=== PATIENT | female | born 1985 | race Caucasian/White ===

== ENCOUNTER 2017-09-11 16:35 | Inpatient (IN) ==
[2017-09-11 17:45] LABS: Basophils # 0.1 K/mcL (0.0-0.2); Basophils % 0.7 %; Eosinophils # 0.1 K/mcL (0.0-0.6); Eosinophils % 0.8 %; Hematocrit 38.6 % (35.3-44.9); Hemoglobin 13.2 g/dL (11.5-15.4); Immature Granulocytes % 0.2 % (0-4); Lymphocytes # 2.2 K/mcL (0.6-4.6); Lymphocytes % 24.7 %; Mean Corpuscular HGB Conc 34.2 g/dL (31.6-35.5); Mean Corpuscular Hemoglobin 29.6 pg (28.0-33.3); Mean Corpuscular Volume 86.5 fL (83.0-100.0); Mean Platelet Volume 9.5 fL (9.4-12.4); Monocytes # 0.6 K/mcL (0.0-1.3); Monocytes % 6.8 %; Platelet Count 262 K/mcL (140-400); Red Blood Count 4.46 M/mcL (3.82-4.97); Red Cell Distribution Width 13.6 % (11.5-14.5); Segmented Neutrophils % 66.8 %
[2017-09-11 17:58] LABS: BUN/Creatinine Ratio 23 (6-26); Blood Urea Nitrogen 14 mg/dL (6-20); C-Reactive Protein 16 mg/L (Less than 10); Calcium 9.5 mg/dL (8.6-10.3); Carbon Dioxide 23 mEq/L (23-29); Chloride 105 mEq/L (98-107); Glucose 105 mg/dL (70-105); Osmolality,Calculated 281 (280-300); Potassium 3.8 mEq/L (3.5-5.1); Sodium 135 mEq/L (136-145); eGFR For Non-African Americans > 60 (> 60)
[2017-09-11] MEDS ORDERED: Piperacillin/Tazobactam 3.375 GM in 0.9 % Sodium Chloride Mini Bag 100 ML IVPB ONE (18:16)
[2017-09-11] MEDS ORDERED: Tdap (Boostrix) Vaccine 0.5 ML SYRINGE IM ONE (18:16)
--- NOTE | 2017-09-11 18:44 | Emergency Department Note ---
Disposition Clinical Impression: Flexor tenosynovitis of finger Disposition: Admitted As Inpatient Condition: Good Referrals: NONE,PCP [Primary Care Provider] - General Adult HPI - General Chief complaint: ED Wound/Laceration Stated complaint: "R hand pain possibly infected" Time Seen by Provider: 09/11/17 17:10 Source: patient Limitations: no limitations Nursing Notes Reviewed: Yes Vital Signs Reviewed: Yes - History of Present Illness HPI Narrative: Patient with a history of hepatitis as well as MRSA. Previous IV drug use with last use approximately 2 weeks ago. Patient presents for swelling, redness, tenderness of the right index finger. Patient noticed that she has got a healing wound to the medial side of the fingers proximal 1 cm in nature. Appears to be several days old as it is healing. Patient's finger is mildly red. Swollen. Symmetric swelling with tenderness along the flexor sheath pain with passive range of motion. Finger held in flexion. Concern for flexor tenosynovitis. A call will be placed to ortho. Blood work and antibiotics will be started. Pain Scale: 8 - Related Data Home Medications Medication Instructions Recorded Confirmed Acetaminophen [Tylenol] 325 - 650 mg PO Q6HR PRN 12/03/16 12/03/16 Previous Rx's Medication Instructions Recorded Bacitracin OINT [Ak-Tracin] 1 appl TP BID PRN #1 tube 12/06/16 Meloxicam [Mobic] 7.5 mg PO DAILY PRN #14 tablet 12/06/16 Ondansetron ODT [Zofran ODT] 4 mg SL Q8HR PRN #12 tab.rapdis 12/27/16 Allergies Allergy/AdvReac Type Severity Reaction Status Date / Time ethinyl estradiol Allergy Rash Verified 09/11/17 16:41 norelgestromin Allergy Rash Verified 09/11/17 16:41 Review of Systems: As Per HPI Constitutional: Denies: fever, chills ENT ED: Denies: ear pain Cardiovascular: Denies: chest pain, palpitations Respiratory: Denies: cough, dyspnea Gastrointestinal: Denies: abdominal pain, nausea Genitourinary: Denies: urgency, dysuria Musculoskeletal: Reports: other (Right index finger pain). Denies: back pain Integumentary: Reports: other (Erythema to the right index finger as well as the dorsum of the hand extending to the distal part of the ventral forearm). Denies: rash Past Medical History - Past Medical History Medical history: Reports: hepatitis Psychiatric history: Reports: anxiety - Social History Smoking Status: Current every day smoker Smokeless Tobacco Status: No (1/2) Alcohol use: Reports: none Drug use: Reports: methamphetamine Physical Exam General appearance: NAD, conversant Eyes: anicteric sclerae, moist conjunctivae; HENT: Atraumatic; oropharynx clear with moist mucous membranes Neck: Normal appearance; Trachea midline Chest: Symmetrical chest rise; No respiratory distress Extremities: Erythema to the right index finger as well as the dorsum of the hand extending to the distal part of the ventral forearm. Distal cap refill to the right index finger is less than 3 seconds and symmetric. Mild dullness in sensation compared to the other fingers. Skin: Normal temperature, turgor and texture; no rash, ulcers or subcutaneous nodules Psych: Appropriate mood and affect Neuro: Awake and alert - General Limitations: no limitations General appearance: alert, in no apparent distress Course - Reevaluation(s) Reevaluation #1: Discussed with patient. Patient willing to stay in the hospital for further evaluation and treatment. - Consultations Consultation #1: Discussed with orthopedics, Dr. Rodriguez, pictures were sent with the patient's approval. At this time the patient can be admitted for IV antibiotics and they will consult. Consultation #2: Discussed with hospitalist. Patient accepted for admission. Vital Signs Temperature 98.1 F 09/11/17 16:38 Pulse Rate 115 09/11/17 16:38 Respiratory Rate 18 09/11/17 16:38 Blood Pressure 146/95 09/11/17 16:38 O2 Sat by Pulse Oximetry 99 09/11/17 16:38 Temperature 98.1 F 09/11/17 17:43 Pulse Rate 115 09/11/17 17:43 Respiratory Rate 18 09/11/17 17:43 Blood Pressure 146/95 09/11/17 17:43 O2 Sat by Pulse Oximetry 99 09/11/17 17:43 Oxygen Delivery Oxygen Delivery Room Air Medical Decision Making - Lab Data Result diagrams: 09/11/17 17:26 09/11/17 17:26 Lab Results 09/11/17 09/11/17 09/11/17 Range/Units 17:26 17:26 17:26 WBC 8.9 (4.3-11.1) K/mcL RBC 4.46 (3.82-4.97) M/mcL Hgb 13.2 (11.5-15.4) g/dL Hct 38.6 (35.3-44.9) % MCV 86.5 (83.0-100.0) fL MCH 29.6 (28.0-33.3) pg MCHC 34.2 (31.6-35.5) g/dL RDW 13.6 (11.5-14.5) % Plt Count 262 (140-400) K/mcL MPV 9.5 (9.4-12.4) fL Immature Gran % 0.2 (0-4) % Seg Neutrophils % 66.8 % Lymphocytes % 24.7 % Monocytes % 6.8 % Eosinophils % 0.8 % Basophils % 0.7 % Neutrophils # 6.0 (1.6-8.9) K/mcL Lymphocytes # 2.2 (0.6-4.6) K/mcL Monocytes # 0.6 (0.0-1.3) K/mcL Eosinophils # 0.1 (0.0-0.6) K/mcL Basophils # 0.1 (0.0-0.2) K/mcL ESR 16 H (0-15) mm/hr Sodium 135 L (136-145) mEq/L Potassium 3.8 (3.5-5.1) mEq/L Chloride 105 (98-107) mEq/L Carbon Dioxide 23 (23-29) mEq/L BUN 14 (6-20) mg/dL Creatinine 0.60 (0.60-1.20) mg/dL Est GFR ( Amer) > 60 (> 60) Est GFR (Non-Af Amer) > 60 (> 60) BUN/Creatinine Ratio 23 (6-26) Glucose 105 (70-105) mg/dL Calculated Osmolality 281 (280-300) Calcium 9.5 (8.6-10.3) mg/dL C-Reactive Protein 16 H (Less than 10) mg/L
[2017-09-11] MEDS ORDERED: Ondansetron ODT 4 MG TAB.RAPDIS SL PRN (21:37)
[2017-09-11] MEDS ORDERED: Naloxone 0.4 MG/ML INJ IVP PRN (21:39)
[2017-09-11] MEDS ORDERED: traMADol 50 MG TABLET PO PRN (21:39)
[2017-09-11] MEDS ORDERED: Acetaminophen 325 MG TABLET PO PRN (21:39)
[2017-09-11] MEDS: *HR* OxyCODONE Immed Rel 5 MG TABLET PO PRN (22:56)
--- NOTE | 2017-09-11 23:13 | Internal Med History&Physical ---
Date of Encounter: 09/11/17 Time of Encounter: 21:00 Internal Medicine - H&P: HPI Chief complaint: REDNESS/SWELLING AND PAIN OF R INDEX FINGER Admitted From: Home Plans for Post Hospital Care: Home History of present illness: Ms. Castellano is a 32 year old female. She has had progressing redness/swelling, as well as pain of her right index finger. It started yesterday morning. She does not recall any particular injury (scratches, bites etc.). However, I did see and linear superficial scratch located on the medial portion of the distal right index finger. The pain is moderate in intensity. She is not able to do whole range of motion in that finger. Denies fever and chills. Denies chest pain. Denies difficulty breathing, coughing and wheezing. The patient denies IV drug use with one exception. It was 2 weeks ago when she injected IV methamphetamine. She is everyday smoker. She denies alcohol use. Review of systems: All 14 organ systems were reviewed by me with the patient. Positive and pertinent negative findings are listed above. The rest of organ systems is negative. Physical Exam: Skin: There is moderate redness/swelling of her right index fingersee above. Eyes: Sclera is white. There is no discharge from eyes. ENMT: Oral/pharyngeal mucosa is normal in appearance. There is no discharge from nose or ears. Respiratory: Normal breath sounds with no crackles and wheezes bilaterally. CV: Heart is regular with no gallop or murmur. GI: Abdomen is flat and soft with no palpable mass or visceromegaly. : There is no tenderness in patient's flanks bilaterally. Neuro exam: He has good strength in upper and lower extremities. He has normal eye movements. Psychiatric: He has normal affect. His thought process is appropriate to the situation. A/P: Cellulitis of her right index finger. Likely triggered by some scratch, she does not remember. We will keep her on IV vancomycin and IV Zosyn. Orthopedic surgery was consulted. We will obtain 2 blood cultures. Hepatitis C. She was tested positive for hepatitis C antibody about 2 years ago. She did not get any particular treatments for that problem. This will be addressed in outpatient settings. IV drug user. I feel that she was using IV drugs more than once in her life. Her blood cultures are imperative. Past Med Surg Social Fam HX - Past Medical History Medical history: hepatitis Additional medical history: liver ca? Psychiatric history: anxiety - Social History Smoking Status: Current every day smoker Packs per day: 1/2 Smokeless Tobacco Status: No Alcohol use: none Drug use: methamphetamine Internal Medicine - H&P: Meds Acetaminophen [Tylenol] 325 - 650 mg PO Q6HR PRN 12/03/16 [History] Bacitracin OINT [Ak-Tracin] 1 appl TP BID PRN #1 tube 12/06/16 [Rx] Meloxicam [Mobic] 7.5 mg PO DAILY PRN #14 tablet 12/06/16 [Rx] Ondansetron ODT [Zofran ODT] 4 mg SL Q8HR PRN #12 tab.rapdis 12/27/16 [Rx] 3 Allergy/AdvReac Type Severity Reaction Status Date / Time ethinyl estradiol Allergy Rash Verified 09/11/17 16:41 norelgestromin Allergy Rash Verified 09/11/17 16:41 - Constitutional Vitals: Temp Pulse Resp BP Pulse Ox 98.3 F 105 18 112/72 96 09/11/17 20:57 09/11/17 20:57 09/11/17 20:57 09/11/17 20:57 09/11/17 20:57 General appearance: Present: A&O X 3, no acute distress, answers questions appropriately Internal Med - H&P Results - Labs CBC & Chem 7: 09/11/17 17:26 09/11/17 17:26 - Assessment and plan (1) Cellulitis of right index finger Current Visit: Yes Status: Acute (2) Hepatitis C Current Visit: Yes Status: Chronic Qualifiers: Viral hepatitis chronicity: unspecified Hepatic coma status: without hepatic coma Qualified Code(s): B19.20 - Unspecified viral hepatitis C without hepatic coma (3) IV drug user Current Visit: Yes Status: Chronic - Time Spent With Patient Total time spent is greater than 50% in coordination of care (as documented) at patient's floor/unit and/or counseling patient: Greater than 35 minutes
[2017-09-12] MEDS: *HR* OxyCODONE Immed Rel 5 MG TABLET PO PRN (06:14)
[2017-09-12 07:30] VITALS: BP 109/70
[2017-09-12] MEDS ORDERED: Piperacillin/Tazobactam 3.375 GM in 0.9 % Sodium Chloride Mini Bag 100 ML IVPB SCH ×2 (08:00)
[2017-09-12] MEDS ORDERED: Ibuprofen 600 MG TABLET PO SCH (09:00)
[2017-09-12] MEDS ORDERED: Aminoglycoside Consult 1 EACH MC ONE (09:59)
--- NOTE | 2017-09-12 12:02 | Event Note ---
Date of Encounter: 09/12/17 Time of Encounter: 12:00 Pt eloped out of hospital without notifying nursing staff or attending provider. Steff Munoz was called and we were unable to locate the patient.
== END 2017-09-12 10:00 | disposition left against medical advice (07) | DRG 603 ==
LOC: EMEROO 16:35 → 3NENU 16:35
PROVIDERS: ADMIT Internal Medicine; ATTEND Internal Medicine

== ENCOUNTER 2018-06-13 16:59 | Observation (INO) ==
[2018-06-13] MEDS ORDERED: 0.9 % Sodium Chloride 1,000 ML IVC ONE (18:04)
[2018-06-13] MEDS ORDERED: Isovue-370 500 ML BOTTLE IVP ONE (18:04)
[2018-06-13 18:35] LABS: Basophils # 0.1 K/mcL (0.0-0.2); Basophils % 0.7 %; Eosinophils # 0.1 K/mcL (0.0-0.6); Eosinophils % 0.7 %; Hematocrit 41.1 % (35.3-44.9); Hemoglobin 13.3 g/dL (11.5-15.4); Immature Granulocytes % 0.8 % (0-4); Lymphocytes # 2.3 K/mcL (0.6-4.6); Lymphocytes % 21.3 %; Mean Corpuscular HGB Conc 32.4 g/dL (31.6-35.5); Mean Corpuscular Hemoglobin 25.5 pg (28.0-33.3); Mean Corpuscular Volume 78.7 fL (83.0-100.0); Mean Platelet Volume 9.8 fL (9.4-12.4); Monocytes # 0.7 K/mcL (0.0-1.3); Monocytes % 6.3 %; Neutrophils # 7.5 K/mcL (1.6-8.9); Platelet Count 264 K/mcL (140-400); Red Blood Count 5.22 M/mcL (3.82-4.97); Red Cell Distribution Width 15.3 % (11.5-14.5); Segmented Neutrophils % 70.2 %
[2018-06-13 18:43] LABS: INR 1.2; Prothrombin Time 13.5 Seconds (9.4-12.1)
[2018-06-13 18:46] LABS: Activated Partial Thrombo Time 30.5 Seconds (26.0-36.0)
[2018-06-13 18:53] LABS: Alanine Aminotransferase 38 Units/L (7-52); Albumin 4.7 g/dL (3.5-5.7); Albumin/Globulin Ratio 1.3 (1.1-2.2); Alkaline Phosphatase 79 Units/L (34-104); Aspartate Amino Transferase 21 Units/L (13-39); BUN/Creatinine Ratio 18 (6-26); Bilirubin,Direct 0.4 mg/dL (0.0-0.2); Bilirubin,Indirect 1.5 mg/dL (0.0-1.2); Bilirubin,Total 1.9 mg/dL (0.3-1.0); Blood Urea Nitrogen 11 mg/dL (6-20); Calcium 9.5 mg/dL (8.6-10.3); Carbon Dioxide 22 mEq/L (23-29); Chloride 105 mEq/L (98-107); Globulin 3.6 g/dL (2.4-3.5); Glucose 91 mg/dL (70-105); Osmolality,Calculated 283 (280-300); Potassium 3.3 mEq/L (3.5-5.1); Sodium 137 mEq/L (136-145); Total Protein 8.3 g/dL (6.4-8.9); eGFR For Non-African Americans > 60 (> 60)
[2018-06-13 19:01] LABS: Bilirubin,Urine Negative (Negative); Blood,Urine Negative (Negative); Clarity,Urine Cloudy (Clear); Color,Urine Yellow (Yellow); Glucose,Urine (UA) Normal (Normal); Ketones,Urine Negative (Negative); Leukocyte Esterase,Urine Moderate (Negative); Nitrite,Urine Positive (Negative); PH,Urine 6.5 pH Units (5.0-8.0); Protein,Urine 30 mg/dL (Neg-Trace); Specific Gravity,Urine 1.013 (1.010-1.025)
[2018-06-13 19:02] LABS: Bacteria,Urine Many per hpf (None-Few); Hyaline Casts,Urine Moderate per lpf (None-Few); RBC,Urine 0-3 per hpf (0-3); Squamous Epithelial Cell,Urine Many per lpf (None-Few); WBC,Urine 30-50 per hpf (0-3)
[2018-06-13 19:15] LABS: Amphetamine Screen,Urine Positive ng/mL (Cutoff=1000); Barbiturate Screen,Urine Negative ng/mL (Cutoff=200); Benzodiazepines Screen,Urine Negative ng/mL (Cutoff=200); Cannabinoid Screen,Urine Negative ng/mL (Cutoff = 50); Cocaine Screen,Urine Negative ng/mL (Cutoff= 300); Opiate Screen,Urine Negative ng/mL (Cutoff=300); Phencyclidine Screen,Urine Negative ng/mL (Cutoff=25)
--- NOTE | 2018-06-13 20:39 | Emergency Department Note ---
Disposition Clinical Impression: Cephalgia, Altered mental status Disposition: Admitted As Inpatient Condition: Fair Referrals: NONE,PCP [Primary Care Provider] - Time of Disposition: 20:40 General Adult HPI - General Chief complaint: ED General Medical Stated complaint: ORDAZ Time Seen by Provider: 06/13/18 17:33 Source: patient, EMS, police Limitations: no limitations - History of Present Illness HPI Narrative: Patient is a 33-year-old James presents to emergency room with chief complaint of headache. Patient states that for the last week she has had a posterior headache and is also noticed that the last 24 hours she has had change in her function of her eyes. The patient states she has felt hot inside his though she is running a fever but is actually not had a true documented fever. Patient states that normally she needs intravenous heroin and while incarcerated the patient used some amphetamines. The patient states that she is not having chest pain or shortness of breath. Pain Scale: 0 - Related Data Home Medications Medication Instructions Recorded Confirmed Acetaminophen [Tylenol] 325 - 650 mg PO Q6HR PRN 12/03/16 12/03/16 Previous Rx's Medication Instructions Recorded Bacitracin OINT [Ak-Tracin] 1 appl TP BID PRN #1 tube 12/06/16 Meloxicam [Mobic] 7.5 mg PO DAILY PRN #14 tablet 12/06/16 Ondansetron ODT [Zofran ODT] 4 mg SL Q8HR PRN #12 tab.rapdis 12/27/16 Allergies Allergy/AdvReac Type Severity Reaction Status Date / Time ethinyl estradiol Allergy Rash Verified 09/11/17 16:41 norelgestromin Allergy Rash Verified 09/11/17 16:41 All systems ED: reviewed and negative except as stated. Past Medical History - Past Medical History Attestation: Yes The following information was validated with the patient. Medical history: Reports: hepatitis Surgical history: Reports: ureteral stent Psychiatric history: Reports: anxiety - Social History Smoking Status: Current every day smoker Smokeless Tobacco Status: No Alcohol use: Reports: none Drug use: Reports: methamphetamine Physical Exam General: Conversant and pleasant interactive and nontoxic. Head: Normocephalic/atraumatic Eyes: Pupils reactive patient crossing her eyes during exam, EOMI, no conj unctivitis Nares: Without d/c. Ears: No erythema or d/c noted. Oralpharnyx: P&MMM noted, Neck: Supple, no JVD or [employer] noted. Cardovascular: regular rate and rhythm without murmur, brisk capillary refill, no peripheral edema. Lungs: Clear to ascultation bilaterally, non-labored Abd: Soft nontender, Non Distended, no guarding, no rebound. : Defered Extremities: moves all extremities equally Neuro: AOx3, no obvious gross neuro deficit Psych: Normal Affect Derm: No rash noted - General Limitations: no limitations General appearance: lethargic Course Vital Signs Temperature 99.4 F 06/13/18 17:09 Pulse Rate 88 06/13/18 17:09 Respiratory Rate 16 06/13/18 17:09 Blood Pressure 161/104 06/13/18 17:09 O2 Sat by Pulse Oximetry 100 06/13/18 17:09 Temperature 99.4 F 06/13/18 17:09 Pulse Rate 92 06/13/18 20:23 Respiratory Rate 23 06/13/18 20:23 Blood Pressure 150/99 06/13/18 20:23 O2 Sat by Pulse Oximetry 100 06/13/18 20:23 Oxygen Delivery Oxygen Delivery Room Air Medical Decision Making - Lab Data Result diagrams: 06/13/18 17:39 06/13/18 17:39 Lab Results 06/13/18 06/13/18 06/13/18 Range/Units 17:39 17:39 17:39 WBC 10.7 (4.3-11.1) K/mcL RBC 5.22 H (3.82-4.97) M/mcL Hgb 13.3 (11.5-15.4) g/dL Hct 41.1 (35.3-44.9) % MCV 78.7 L (83.0-100.0) fL MCH 25.5 L (28.0-33.3) pg MCHC 32.4 (31.6-35.5) g/dL RDW 15.3 H (11.5-14.5) % Plt Count 264 (140-400) K/mcL MPV 9.8 (9.4-12.4) fL Immature Gran % 0.8 (0-4) % Seg Neutrophils % 70.2 % Lymphocytes % 21.3 % Monocytes % 6.3 % Eosinophils % 0.7 % Basophils % 0.7 % Neutrophils # 7.5 (1.6-8.9) K/mcL Lymphocytes # 2.3 (0.6-4.6) K/mcL Monocytes # 0.7 (0.0-1.3) K/mcL Eosinophils # 0.1 (0.0-0.6) K/mcL Basophils # 0.1 (0.0-0.2) K/mcL PT 13.5 H (9.4-12.1) Seconds INR 1.2 APTT 30.5 (26.0-36.0) Seconds Sodium 137 (136-145) mEq/L Potassium 3.3 L (3.5-5.1) mEq/L Chloride 105 (98-107) mEq/L Carbon Dioxide 22 L (23-29) mEq/L BUN 11 (6-20) mg/dL Creatinine 0.62 (0.60-1.20) mg/dL Est GFR ( Amer) > 60 (> 60) Est GFR (Non-Af Amer) > 60 (> 60) BUN/Creatinine Ratio 18 (6-26) Glucose 91 (70-105) mg/dL Calculated Osmolality 283 (280-300) Lactic Acid (0.5-2.2) mmol/L Calcium 9.5 (8.6-10.3) mg/dL Total Bilirubin 1.9 H (0.3-1.0) mg/dL Direct Bilirubin 0.4 H (0.0-0.2) mg/dL Indirect Bilirubin 1.5 H (0.0-1.2) mg/dL AST 21 (13-39) Units/L ALT 38 (7-52) Units/L Alkaline Phosphatase 79 (34-104) Units/L Serum Total Protein 8.3 (6.4-8.9) g/dL Albumin 4.7 (3.5-5.7) g/dL Globulin 3.6 H (2.4-3.5) g/dL Albumin/Globulin Ratio 1.3 (1.1-2.2) Serum , Qual (Negative) Urine Color (Yellow) Urine Clarity (Clear) Urine pH (5.0-8.0) pH Units Ur Specific [place] (1.010-1.025) Urine Protein (Neg-Trace) mg/dL Urine Glucose (UA) (Normal) mg/dL Urine Ketones (Negative) mg/dL Urine Blood (Negative) Urine Nitrite (Negative) Urine Bilirubin (Negative) Urine Urobilinogen (Normal) mg/dL Ur Leukocyte Esterase (Negative) Urine Microscopic RBC (0-3) per hpf Urine Microscopic WBC (0-3) per hpf Ur Squamous Epith Cells (None-Few) per lpf Urine Bacteria (None-Few) per hpf Hyaline Casts (None-Few) per lpf Ur Culture Indicated? (NO) Urine Opiates Screen (Zntage=647) ng/mL Ur Barbiturates Screen (Esazrk=463) ng/mL Ur Phencyclidine Scrn (Cutoff=25) ng/mL Ur Amphetamines Screen (Raxmms=0883) ng/mL U Benzodiazepines Scrn (Movwdr=224) ng/mL Urine Cocaine Screen (Cutoff= 300) ng/mL U Marijuana (THC) Screen (Cutoff = 50) ng/mL Ur Drug Screen Interp 06/13/18 06/13/18 06/13/18 Range/Units 17:39 18:30 18:47 WBC (4.3-11.1) K/mcL RBC (3.82-4.97) M/mcL Hgb (11.5-15.4) g/dL Hct (35.3-44.9) % MCV (83.0-100.0) fL MCH (28.0-33.3) pg MCHC (31.6-35.5) g/dL RDW (11.5-14.5) % Plt Count (140-400) K/mcL MPV (9.4-12.4) fL Immature Gran % (0-4) % Seg Neutrophils % % Lymphocytes % % Monocytes % % Eosinophils % % Basophils % % Neutrophils # (1.6-8.9) K/mcL Lymphocytes # (0.6-4.6) K/mcL Monocytes # (0.0-1.3) K/mcL Eosinophils # (0.0-0.6) K/mcL Basophils # (0.0-0.2) K/mcL PT (9.4-12.1) Seconds INR APTT (26.0-36.0) Seconds Sodium (136-145) mEq/L Potassium (3.5-5.1) mEq/L Chloride (98-107) mEq/L Carbon Dioxide (23-29) mEq/L BUN (6-20) mg/dL Creatinine (0.60-1.20) mg/dL Est GFR ( Amer) (> 60) Est GFR (Non-Af Amer) (> 60) BUN/Creatinine Ratio (6-26) Glucose (70-105) mg/dL Calculated Osmolality (280-300) Lactic Acid 0.7 (0.5-2.2) mmol/L Calcium (8.6-10.3) mg/dL Total Bilirubin (0.3-1.0) mg/dL Direct Bilirubin (0.0-0.2) mg/dL Indirect Bilirubin (0.0-1.2) mg/dL AST (13-39) Units/L ALT (7-52) Units/L Alkaline Phosphatase (34-104) Units/L Serum Total Protein (6.4-8.9) g/dL Albumin (3.5-5.7) g/dL Globulin (2.4-3.5) g/dL Albumin/Globulin Ratio (1.1-2.2) Serum , Qual Negative (Negative) Urine Color Yellow (Yellow) Urine Clarity Cloudy A (Clear) Urine pH 6.5 (5.0-8.0) pH Units Ur Specific [place] 1.013 (1.010-1.025) Urine Protein 30 H (Neg-Trace) mg/dL Urine Glucose (UA) Normal (Normal) mg/dL Urine Ketones Negative (Negative) mg/dL Urine Blood Negative (Negative) Urine Nitrite Positive A (Negative) Urine Bilirubin Negative (Negative) Urine Urobilinogen 4.0 H (Normal) mg/dL Ur Leukocyte Esterase Moderate H (Negative) Urine Microscopic RBC 0-3 (0-3) per hpf Urine Microscopic WBC 30-50 H (0-3) per hpf Ur Squamous Epith Cells Many H (None-Few) per lpf Urine Bacteria Many H (None-Few) per hpf Hyaline Casts Moderate H (None-Few) per lpf Ur Culture Indicated? YES A (NO) Urine Opiates Screen (Xeaigo=013) ng/mL Ur Barbiturates Screen (Vgwqqt=596) ng/mL Ur Phencyclidine Scrn (Cutoff=25) ng/mL Ur Amphetamines Screen (Jrzzja=9625) ng/mL U Benzodiazepines Scrn (Algqtt=051) ng/mL Urine Cocaine Screen (Cutoff= 300) ng/mL U Marijuana (THC) Screen (Cutoff = 50) ng/mL Ur Drug Screen Interp 06/13/18 Range/Units 18:47 WBC (4.3-11.1) K/mcL RBC (3.82-4.97) M/mcL Hgb (11.5-15.4) g/dL Hct (35.3-44.9) % MCV (83.0-100.0) fL MCH (28.0-33.3) pg MCHC (31.6-35.5) g/dL RDW (11.5-14.5) % Plt Count (140-400) K/mcL MPV (9.4-12.4) fL Immature Gran % (0-4) % Seg Neutrophils % % Lymphocytes % % Monocytes % % Eosinophils % % Basophils % % Neutrophils # (1.6-8.9) K/mcL Lymphocytes # (0.6-4.6) K/mcL Monocytes # (0.0-1.3) K/mcL Eosinophils # (0.0-0.6) K/mcL Basophils # (0.0-0.2) K/mcL PT (9.4-12.1) Seconds INR APTT (26.0-36.0) Seconds Sodium (136-145) mEq/L Potassium (3.5-5.1) mEq/L Chloride (98-107) mEq/L Carbon Dioxide (23-29) mEq/L BUN (6-20) mg/dL Creatinine (0.60-1.20) mg/dL Est GFR ( Amer) (> 60) Est GFR (Non-Af Amer) (> 60) BUN/Creatinine Ratio (6-26) Glucose (70-105) mg/dL Calculated Osmolality (280-300) Lactic Acid (0.5-2.2) mmol/L Calcium (8.6-10.3) mg/dL Total Bilirubin (0.3-1.0) mg/dL Direct Bilirubin (0.0-0.2) mg/dL Indirect Bilirubin (0.0-1.2) mg/dL AST (13-39) Units/L ALT (7-52) Units/L Alkaline Phosphatase (34-104) Units/L Serum Total Protein (6.4-8.9) g/dL Albumin (3.5-5.7) g/dL Globulin (2.4-3.5) g/dL Albumin/Globulin Ratio (1.1-2.2) Serum , Qual (Negative) Urine Color (Yellow) Urine Clarity (Clear) Urine pH (5.0-8.0) pH Units Ur Specific [place] (1.010-1.025) Urine Protein (Neg-Trace) mg/dL Urine Glucose (UA) (Normal) mg/dL Urine Ketones (Negative) mg/dL Urine Blood (Negative) Urine Nitrite (Negative) Urine Bilirubin (Negative) Urine Urobilinogen (Normal) mg/dL Ur Leukocyte Esterase (Negative) Urine Microscopic RBC (0-3) per hpf Urine Microscopic WBC (0-3) per hpf Ur Squamous Epith Cells (None-Few) per lpf Urine Bacteria (None-Few) per hpf Hyaline Casts (None-Few) per lpf Ur Culture Indicated? (NO) Urine Opiates Screen Negative (Ddxipu=569) ng/mL Ur Barbiturates Screen Negative (Wglsgn=811) ng/mL Ur Phencyclidine Scrn Negative (Cutoff=25) ng/mL Ur Amphetamines Screen Positive H (Uqztzi=6310) ng/mL U Benzodiazepines Scrn Negative (Zbsrsg=602) ng/mL Urine Cocaine Screen Negative (Cutoff= 300) ng/mL U Marijuana (THC) Screen Negative (Cutoff = 50) ng/mL Ur Drug Screen Interp See Below
[2018-06-13] MEDS ORDERED: Acetaminophen 650 MG RECTAL SUPP RC PRN (21:56)
[2018-06-14] MEDS ORDERED: Naloxone 0.4 MG/ML INJ IVP PRN (02:59)
[2018-06-14] MEDS ORDERED: 0.9 % Sodium Chloride 1,000 ML IVC SCH (03:00)
--- NOTE | 2018-06-14 03:08 | Internal Med History&Physical ---
Date of Encounter: 06/14/18 Time of Encounter: 01:35 Internal Medicine - H&P: HPI Chief complaint: UTI Admitted From: Emergency Dept Plans for Post Hospital Care: Home History of present illness: Ms. Castellano is a 33 year old female Patient presented to the emergency room with complaint of headache. She says that she has had the headache for 1-2 weeks, is located in the back of her head and over the last 24 hours she has had difficulty with her eye movements. She is also stated that she has felt feverish despite having a normal measured temperature. She has a history of IV heroin use but well recently incarcerated she used methamphetamine. She indicates that about 13 days ago she gave , and received an epidural shot during this time. He says ever since then she has had these symptoms. Today she states that she is unable to walk and cannot move her legs. From the snf she was transported to the ER for further management. In the emergency room patient's vital signs were within normal limits. She had a showed temperature 99.4 which improved to 97.9 after a by mouth Tylenol. Her CBC was within normal limits aside from a mildly low MCV of 78.7. Patient's CMP was significant for a potassium of 3.3, total bilirubin of 1.9. INR was 1.2. Urinalysis showed positive nitrites and moderate leukocyte esterase with many urine bacteria and 30-50 white blood cells. Patient's urine tox screen was pos itive for amphetamines. An angiogram of the head was performed that showed no acute intracranial abnormality. Aside from Tylenol she was given 1 L bolus of IV fluids and then admitted to the hospital floor for further evaluation. The ER note states that there were no obvious gross neuro deficits and extraocular muscles were intact. Patient was crossing her eyes during the ER exam as well. Upon my evaluation, patient is resting comfortably in hospital bed in no acute distress. She was asleep when I arrived. A community relations police lieutenant is present in the room, and she is currently chained to the bed. She denies chest pain, nausea, vomiting, diarrhea but states that she does have suprapubic abdominal pain and constipation. She frequently would change subjects when asked about specific questions, and she had many neurological complaints including pain in her neck, difficulty with eye movement and inability to move her arms and legs. However during my assessment patient was able to do all of these things without difficulty until I focused on them during my exam. Past Med Surg Social Fam HX - Past Medical History Medical history: hepatitis Additional medical history: liver ca? Psychiatric history: anxiety - Past Surgical History Surgical History: ureteral stent Additional surgical history: t&a,abcess, abnormal pap smear, liver biopsy - Social History Smoking Status: Former smoker Smokeless Tobacco Status: No Alcohol use: none Drug use: methamphetamine - Family History Mother Living Status: Still Living Hx Family Endocrine Disorder: Yes (DM) Father Living Status: Still Living Hx Family Endocrine Disorder: Yes (DM) Internal Medicine - H&P: Meds Ibuprofen 800 mg PO TID PRN 06/13/18 [History] Allergy/AdvReac Type Severity Reaction Status Date / Time ethinyl estradiol Allergy Rash Verified 09/11/17 16:41 norelgestromin Allergy Rash Verified 09/11/17 16:41 All Systems PM: A 10-system review of systems was performed and is negative for pertinent findings except as documented above in the HPI. - Constitutional Vitals: Temp Pulse Resp BP Pulse Ox 97.9 F 75 16 132/85 99 06/14/18 00:01 06/14/18 00:01 06/14/18 00:01 06/14/18 00:01 06/14/18 00:01 General appearance: Present: cooperative, mild distress, A&O X 3, pleasant, answers questions appropriately Exam: Patient oriented, but difficult to stay focused on one thing before moving on to the next topic - Head Head exam: Present: normal inspection - Eye Additional comments: Patient had normal eye movements and no strabismus, but then on exam would suddenly be cross-eyed. Patient could move eyes normally when looking at things around the room, but on exam, she would suddenly have difficulty moving her eyes and would not look left and right, stating that she couldn't do it - Neck Neck exam general surgery: Present: full ROM. Absent: tenderness - Respiratory Respiratory exam: Present: CTAB. Absent: rales, respiratory distress, rhonchi, wheezes - Cardiovascular Cardiovascular exam: Present: RRR. Absent: diastolic murmur, systolic murmur - GI/Abdominal GI/Abdominal exam: Present: normal bowel sounds, soft, tenderness Additional comments: Tenderness suprapubically with palpation - Extremities Exam Extremities exam: Present: warm, radial pulses palpable and symmetrical. Absent: pedal edema, tenderness Additional comments: Patient able to grab water bottle without difficulty and ferry pilot blankets, but then on exam suddenly could not move fingers or straighten her arms. I felt resistance with examining both upper and lower extremities. Patient would not move her legs, stating that she just couldn't do it. - Neurological Exam Neurological exam: Absent: facial droop, speech deficit Additional comments: Difficult to exam due to patient not cooperating with exam. No obvious deficits prior to focusing on the neuro exam, then patient would not be able to perform simple movements like move her fingers and feet. Would not follow finger, but could easily look around the room, full range of motion of neck despite stating she had pain. - Psychiatric Psychiatric exam: Absent: agitated, anxious - Skin Skin exam: Present: dry, normal color, warm Internal Med - H&P Results - Labs CBC & Chem 7: 06/13/18 17:39 06/13/18 17:39 Labs: Short CBC 06/13/18 Range/Units 17:39 WBC 10.7 (4.3-11.1) K/mcL Hgb 13.3 (11.5-15.4) g/dL Hct 41.1 (35.3-44.9) % Plt Count 264 (140-400) K/mcL Neutrophils # 7.5 (1.6-8.9) K/mcL BMP 06/13/18 17:39 Sodium 137 Potassium 3.3 L Chloride 105 Carbon Dioxide 22 L BUN 11 Creatinine 0.62 Glucose 91 Calcium 9.5 Liver Function 06/13/18 Range/Units 17:39 Total Bilirubin 1.9 H (0.3-1.0) mg/dL Direct Bilirubin 0.4 H (0.0-0.2) mg/dL AST 21 (13-39) Units/L ALT 38 (7-52) Units/L Alkaline Phosphatase 79 (34-104) Units/L Albumin 4.7 (3.5-5.7) g/dL Urine 06/13/18 Range/Units 18:47 Urine Color Yellow (Yellow) Urine Clarity Cloudy A (Clear) Urine pH 6.5 (5.0-8.0) pH Units Ur Specific [place] 1.013 (1.010-1.025) Urine Protein 30 H (Neg-Trace) mg/dL Urine Glucose (UA) Normal (Normal) mg/dL - Impressions ITS Impressions Angiography CT 06/13/18 18:04 IMPRESSION: 1. No acute intracranial abnormality. 2. Normal CTA of the head. D/ / Lei Baez / Lei Baez Interpreting Provider: Lei Baez - Assessment and Plan (1) UTI (urinary tract infection) Current Visit: Yes Status: Acute Assessment and plan: Urinalysis positive for Nitrites and moderate leukocyte esterase. Follow up urine cultures Start ceftriaxone Monitor for worsening signs of infection Qualifiers: Urinary tract infection type: site unspecified Hematuria presence: without hematuria Qualified Code(s): N39.0 - Urinary tract infection, site not specified (2) Uncooperative behavior Current Visit: Yes Status: Acute Assessment and plan: Bizarre exam, patient was not cooperative with neuro evaluation, but was able to move upper and lower extremities just moments before. She also initially had no issues moving her eyes until my evaluation. Possible malingering behavior. She says she has been like this ever since her epidural given to her during labor 13 days ago. PT/OT evaluation Consider MRI if continues to have difficulties Consider neuro evaluation or psych eval depending on findings (3) Cephalgia Current Visit: Yes Status: Acute Assessment and plan: Patient states that she has a headache. Initially rectal tylenol was offered be cause she indicated that she had difficulty with swallowing. She then suddenly was able to drink without difficulty and refused the rectal tylenol. CT angiogram of the head was negative. PO tylenol Qualifiers: Headache type: unspecified Headache chronicity pattern: acute headache Intractability: not intractable Qualified Code(s): R51 - Headache (4) Hepatitis C Current Visit: No Status: Chronic Assessment and plan: In 2017 patient tested positive for hepatitis C. Patient's current liver enzymes are mainly within normal limits however she does have elevated total bilirubin of 1.9 with a direct bilirubin of 0.4. Likely related to her liver disease. Patient does not appear jaundiced. Repeat labs in the morning Qualifiers: Viral hepatitis chronicity: unspecified Hepatic coma status: without hepatic coma Qualified Code(s): B19.20 - Unspecified viral hepatitis C without hepatic coma (5) Constipation Current Visit: Yes Status: Acute Assessment and plan: Patient states she is constipated. Has not had a bowel movement in several days. MiraLAX and Colace as needed Qualifiers: Constipation type: unspecified constipation type Qualified Code(s): K59.00 - Constipation, unspecified (6) IV drug user Current Visit: No Status: Chronic Assessment and plan: Patient admits to methamphetamine use. Patient's urine positive for amphetamines. Patient states she took meth about 4 days ago. (7) DVT prophylaxis Current Visit: Yes Status: Acute Assessment and plan: Subcutaneous heparin - Time Spent With Patient Total time spent is greater than 50% in coordination of care (as documented) at patient's floor/unit and/or counseling patient: Greater than 35 minutes
[2018-06-14] MEDS: Acetaminophen 325 MG TABLET PO PRN ×2 (03:38→09:25)
[2018-06-14] MEDS: Ondansetron 4 MG/2 ML VIAL IVP PRN ×2 (03:48→11:52)
[2018-06-14 04:58] LABS: Hematocrit 35.6 % (35.3-44.9); Mean Corpuscular HGB Conc 32.6 g/dL (31.6-35.5); Mean Corpuscular Hemoglobin 25.8 pg (28.0-33.3); Mean Corpuscular Volume 79.3 fL (83.0-100.0); Mean Platelet Volume 10.1 fL (9.4-12.4); Platelet Count 227 K/mcL (140-400); Red Blood Count 4.49 M/mcL (3.82-4.97); Red Cell Distribution Width 15.6 % (11.5-14.5)
[2018-06-14 05:01] LABS: Hemoglobin 11.6 g/dL (11.5-15.4)
[2018-06-14 05:21] LABS: Alanine Aminotransferase 33 Units/L (7-52); Albumin 4.1 g/dL (3.5-5.7); Albumin/Globulin Ratio 1.5 (1.1-2.2); Alkaline Phosphatase 72 Units/L (34-104); Aspartate Amino Transferase 20 Units/L (13-39); BUN/Creatinine Ratio 22 (6-26); Blood Urea Nitrogen 13 mg/dL (6-20); Calcium 8.9 mg/dL (8.6-10.3); Carbon Dioxide 20 mEq/L (23-29); Chloride 109 mEq/L (98-107); Globulin 2.7 g/dL (2.4-3.5); Glucose 116 mg/dL (70-105); Osmolality,Calculated 293 (280-300); Sodium 141 mEq/L (136-145); Total Protein 6.8 g/dL (6.4-8.9); eGFR For Non-African Americans > 60 (> 60)
[2018-06-14 05:22] LABS: % Iron Saturation 12 % (15-50); Iron 35 mcg/dL (50-170); Transferrin 217 mg/dL (203-362)
[2018-06-14 05:35] LABS: Ferritin 66 ng/mL (10-120)
[2018-06-14] MEDS ORDERED: *HR* Heparin 5,000 UNIT/ML VIAL SQ SCH (06:00)
[2018-06-14] MEDS: Ketorolac 15 MG/ML VIAL IVP PRN ×2 (06:17→11:53)
[2018-06-14] MEDS ORDERED: cefTRIAXone 1,000 MG in Water for inj. (sterile) 20 ML 10 ML IVP SCH (09:00)
--- NOTE | 2018-06-14 14:49 | Internal Med Progress Note ---
Hospitalist Progress Note - Encounter Date of Encounter: 06/14/18 Time of Encounter: 14:46 - Subjective Interval History: Ms. Castellano is a 33 year old female with no significant past medical history other than chronic substance abuse patient presented to the emergency room from local custodial with complaint of occipital headache, b/l LE numbness and b/l hand numbness too. She says that she has had the headache for 1-2 weeks, is located in the back of her head and over the last 24 hours she has had difficulty with her eye movements. She has a history of IV heroin use but recently incarcerated she used methamphetamine. In the ER her urinalysis showed positive nitrites and moderate leukocyte esterase with many urine bacteria and 30-50 white blood mal ls. Patient's urine tox screen was positive for amphetamines. An angiogram of the head was performed that showed no acute intracranial abnormality. She was admitted in the hospital and placed on classroom monitor. Patient still complaining about our hospital headache. She still have same numbness in both upper and lower extremities. - Exam Vitals: Temp Pulse Resp BP Pulse Ox 97.7 F 61 16 148/95 100 06/14/18 11:36 06/14/18 11:36 06/14/18 11:36 06/14/18 11:36 06/14/18 11:36 Exam: Gen: Alert, awake, Oriented to time,place and person HEENT: Neck supple, no spasm noticed Chest: Diminished breath sounds B/L, No wheezing, No crackles, No rales Heart: S1S2+ RRR No murmurs Abd: Soft, NT, BS +, No organomegaly Ext: No edema, pulses are palpable, No calf tenderness Neuro : paresthesia symptoms in both upper extremity some lower extremities.. Motor strength 5 out of 5 in all extremities. Reflexes ++ Skin: No rash. - Assessment and Plan (1) Cephalgia Current Visit: Yes Status: Acute Assessment and Plan: Her MRI showed possible inflammatory changes both cerebral hemispheres involving the posterior left frontal lobe, right parietal lobe, and right occipital lobe. Her presentation concerning for more of an auto immune disease than vasculitis No rash noticed Consulted Neurology for further eval and work up (2) Paresthesia of bilateral legs Current Visit: Yes Status: Acute (3) UTI (urinary tract infection) Current Visit: Yes Status: Acute Assessment and Plan: UA - abnormal cont Rocephin will f/u on Urine cx (4) IV drug user Current Visit: No Status: Chronic Assessment and Plan: UDS positive for amphetamines - Time Spent with Patient Total time spent is greater than 50% in coordination of care (as documented) at patient's floor/unit and/or counseling patient: Internal Medicine: Result - Labs CBC & Chem 7: 06/14/18 04:35 06/14/18 04:35 Labs: Short CBC 06/13/18 06/14/18 Range/Units 17:39 04:35 WBC 10.7 7.9 (4.3-11.1) K/mcL Hgb 13.3 11.6 D (11.5-15.4) g/dL Hct 41.1 35.6 (35.3-44.9) % Plt Count 264 227 (140-400) K/mcL Neutrophils # 7.5 (1.6-8.9) K/mcL BMP 06/13/18 06/14/18 17:39 04:35 Sodium 137 141 Potassium 3.3 L 3.0 L Chloride 105 109 H Carbon Dioxide 22 L 20 L BUN 11 13 Creatinine 0.62 0.60 Glucose 91 116 H Calcium 9.5 8.9 Liver Function 06/13/18 06/14/18 Range/Units 17:39 04:35 Total Bilirubin 1.9 H 2.0 H (0.3-1.0) mg/dL Direct Bilirubin 0.4 H (0.0-0.2) mg/dL AST 21 20 (13-39) Units/L ALT 38 33 (7-52) Units/L Alkaline Phosphatase 79 72 (34-104) Units/L Albumin 4.7 4.1 (3.5-5.7) g/dL Urine 06/13/18 Range/Units 18:47 Urine Color Yellow (Yellow) Urine Clarity Cloudy A (Clear) Urine pH 6.5 (5.0-8.0) pH Units Ur Specific [place] 1.013 (1.010-1.025) Urine Protein 30 H (Neg-Trace) mg/dL Urine Glucose (UA) Normal (Normal) mg/dL - ABG Interpretation ABG results: PT/INR, D-dimer PT 13.5 Seconds (9.4-12.1) H 06/13/18 17:39 - Impressions Impressions Angiography CT 06/13/18 18:04 IMPRESSION: 1. No acute intracranial abnormality. 2. Normal CTA of the head. D/ / Lei Baez / Lei Baez Interpreting Provider: Lei Baez Brain MRI 06/14/18 08:23 IMPRESSION: Small scattered faint hyperintense signal foci are identified on the FLAIR sequence within the cortical and subcortical white matter of both cerebral hemispheres involving the posterior left frontal lobe, right parietal lobe, and right occipital lobe. These changes are nonspecific but may represent inflammatory process such as a vasculitis. Posterior reversible leukoencephalopathy is an additional possibility particularly if the patient has history of hypertension D/ / 06/14/2018 11:20:03 Heriberto Worrell MD / jose elias Interpreting Provider: Heriberto Worrell MD Consult Discharge Plan - Plan Referrals: NONE,PCP [Primary Care Provider] - (1) Cephalgia Qualifiers: Headache type: unspecified Headache chronicity pattern: acute headache Intractability: not intractable Qualified Code(s): R51 - Headache (3) UTI (urinary tract infection) Qualifiers: Urinary tract infection type: site unspecified Hematuria presence: without hematuria Qualified Code(s): N39.0 - Urinary tract infection, site not specified
[2018-06-14 15:13] LABS: C-Reactive Protein 49 mg/L (Less than 10)
[2018-06-14 15:16] VITALS: BP 155/97
--- NOTE | 2018-06-14 15:16 | Neurology - Consult Note ---
<Asher Townsend J - Last Filed: 06/14/18 15:38> Date of Encounter: 06/14/18 Time of Encounter: 15:13 Assessment and Plan (1) Cephalgia Current Visit: Yes Status: Acute Cephalgia of unclear duration; patient reporting duration of 2-3 weeks and 2- days Neuro consulted to do MRI findings showing small scattered faint hyperintense signal foci within the cortical and subcortical white matter of both cerebral hemispheres involving the posterior left frontal lobe, right parietal lobe and right occipital lobe concerning for possible inflammatory vasculitis. However, patient does not have any symptoms presently should make me consider a diagnosis of vasculitis. Further CT angiography of the head was unremarkable. The patient does have a component of malingering and overall gives a poor effort which creates a complicated neurological exam. However, there are no obvious neurological deficits found. Of note, she does report that both her headaches and generalized weakness have improved since admission. I do not believe that her symptoms are of a primary neurological problem, or that her headaches are caused by a neurologic emergency. She is okay to DC from neurology's perspective at the discretion of the primary team Qualifiers: Headache type: unspecified Headache chronicity pattern: acute headache Intractability: not intractable Qualified Code(s): R51 - Headache (2) Paresthesia of bilateral legs Current Visit: Yes Status: Acute Patient reporting paresthesias of bilateral leg on admission These have since resolved Has noted hypokalemia and may be contributory Recommend correcting hypokalemia; defer to primary team Neuroimaging negative for acute neurological disorder (3) Generalized weakness Current Visit: Yes Status: Acute Generalized weakness for 2-3 week Found to have urinary tract infection on admission Given IV antibiotics; symptoms improving UTI most likely cause of generalized weakness. Do not feel there is a primary neurologic cause such as GBS, or MG for generalized weakness Neuro workup unremarkable No need for further testing or imaging at this time. History of Present Illness Chief complaint: headaches HPI: Ms. Castellano is a 33 year old female with a PMH of hepatitis C, anxiety, and IV drug use. She presents to the ED from [facility] with a complaint of posterior headache (cephalgia). She is reporting differing periods when her symptoms began. She has noted that her symptoms began approximately 2-3 weeks ago on reevaluation says they started 2 days ago. She reports that she is having a constant sharp and burning ache in the back of her head. She notes that this pain occurs shor tly after giving approximately 3 weeks ago. She states that the pain has been getting progressively worse over the last 3 weeks and that approximately 2 days ago she began to have difficulty moving her eyes and generalized weakness all over reporting eye was "paralyzed ". She notes that she felt hot all over and was unable to walk because her legs were weak and she could not use her right arm. She denies any dysphagia, dysarthria, neck pain/stiffness, dizziness, ataxia, sensory deficits, chest pain, shortness of breath, abdominal pain, urinary signs or symptoms. She does admit to "hot flashes "which have been ongoing for 3 weeks, or proximally since she gave . CT angiogram of the head reveals no acute intracranial abnormality, no focal stenosis. MRI of the brain showing small scattered faint hyperintense signal foci identified on the [facility] imaging in the cortical and subcortical white matter of both cerebellar hemispheres involving the posterior left frontal lobe, right parietal lobe and right occipital lobe. These findings appear to be nonspecific in the absence of vasculitis features. Past Med Surg Social Fam HX - Past Medical History Medical history: hepatitis Additional medical history: liver ca? Psychiatric history: anxiety - Past Surgical History Surgical History: ureteral stent Additional surgical history: t&a,abcess, abnormal pap smear, liver biopsy - Social History Smoking Status: Former smoker Smokeless Tobacco Status: No Alcohol use: none Drug use: methamphetamine - Family History Mother Living Status: Still Living Hx Family Endocrine Disorder: Yes (DM) Father Living Status: Still Living Hx Family Endocrine Disorder: Yes (DM) Medications and Allergies Ibuprofen 800 mg PO TID PRN 06/13/18 [History] Cephalexin [Keflex] 500 mg PO TID #15 capsule 06/14/18 [Rx] Allergy/AdvReac Type Severity Reaction Status Date / Time ethinyl estradiol Allergy Rash Verified 09/11/17 16:41 norelgestromin Allergy Rash Verified 09/11/17 16:41 All Systems: The remainder of the systems were reviewed and are negative Review of Systems: REVIEW OF SYSTEMS GENERAL: Admits to fevers, chills, fatigue, and "hot flashes" NEUROLOGIC: Positive-right arm and bilateral leg weakness, posterior headache PSYCH: HEENT: Negative for any head trauma, neck trauma, neck stiffness, photophobia, phonophobia, tendinitis CARDIAC: Negative for any chest pain, dyspnea, palpitations GASTROINTESTINAL: Negative for any abdominal pain, nausea, vomiting GENITOURINARY: Negative for any dysuria, hematuria, incontinence. Positive-difficulty with urination ENDOCRINE: Thyroid trouble, heat/cold intolerance, excessive sweating, thirst, hunger, increased FSBG, or A1C, DM, increased urination, changes in hei ght/weight MUSCULOSKELETAL: positive-Joint pain, stiffness, loss of strength to bilateral legs and right arm, denies joint swelling or muscle pain INTEGUMENTARY: Negative for any rashes, eruptions, or lesions Physical Examination - Vital Signs Vital Signs: Initial Vital Signs Temp Pulse Resp BP Pulse Ox 99.4 F 88 16 161/104 100 06/13/18 17:06/13/18 17:06/13/18 17:06/13/18 17:06/13/18 17:09 - Exam Exam: Examination: General Examination: *CONSTITUTIONAL: Alert and oriented x3, no acute distress *GENERAL APPEARANCE OF PATIENT overall appears healthy and well groomed *EYES: pupils are large 7-8mm but equal, round, reactive to light and accommodation, conjunctiva clear *CARDIOVASCULAR , no peripheral edema, distal temperature normal, dorsalis pedis pulses normal. Musculoskeletal: *GAIT AND STATION deferred, d/t B/L leg weakness *ASSESSMENT OF MUSCLE STRENGTH IN THE UPPER AND LOWER EXTREMITIES bilateral deltoid, bicep, tricep, hip flexors ,anterior tibialis, dorsoflexion of the foot 5/5. Left billet heater operator strength 5/5, right billet heater operator strength, 3/5 however, patient displaying poor effort *MUSCLE TONE IN THE UPPER AND LOWER EXTREMITIES normal. No abnormal movements, fasciculations or atrophy identified. Neurological: *ORIENTATION to person, situation, time and place *RECURRENT AND REMOTE MEMORY intact *ATTENTION AND CONCENTRATION are normal *LANGUAGE FUNCTION no significant aphasia or dysarthia was noted. *FUND OF KNOWLEDGE aware of current events, past history, vocabulary *MENTAL attention span and concentration normal. *CN II optic fundi were normal, no papilledema noted. *CN III,IV, PERRLA extraocular eye movements were full, no nystagmus and no ptosis noted. *CN V shows normal sensation and jaw opens symmetrically. *CN VII shows normal facial movement symmetrically, upper and lower bilaterally. *CN VIII shows no significant hearing loss on exam *CN IX,,X palate elevated symmetrically *CN XI normal strength in the sternocleidomastoid muscles, symmetrical shoulder shrugging. *CN XII tongue protruded in the midline, with normal strength and movement. *SENSORY EXAMINATION diminished sensation noted to bilateral feet; patient having difficulty feeling pinprick to bilateral feet *REFLEXES: deep tendon reflexes were normal and symmetrical , grade 2/4 diffusely, no pathological reflexes were noted. *CEREBELLAR TESTING normal finger to nose, heel/knee/valladares *PAIN LEVEL 0/10 Results - Laboratory Findings CBC and BMP: 06/14/18 04:35 06/14/18 04:35 Abnormal lab findings: Abnormal lab results RBC 5.22 M/mcL (3.82-4.97) H 06/13/18 17:39 MCV 79.3 fL (83.0-100.0) L 06/14/18 04:35 MCH 25.8 pg (28.0-33.3) L 06/14/18 04:35 RDW 15.6 % (11.5-14.5) H 06/14/18 04:35 PT 13.5 Seconds (9.4-12.1) H 06/13/18 17:39 Potassium 3.0 mEq/L (3.5-5.1) L 06/14/18 04:35 Chloride 109 mEq/L (98-107) H 06/14/18 04:35 Carbon Dioxide 20 mEq/L (23-29) L 06/14/18 04:35 Glucose 116 mg/dL (70-105) H 06/14/18 04:35 Iron 35 mcg/dL (50-170) L 06/14/18 04:35 % Saturation 12 % (15-50) L 06/14/18 04:35 2.0 mg/dL (0.3-1.0) H 06/14/18 04:35 0.4 mg/dL (0.0-0.2) H 06/13/18 17:39 1.5 mg/dL (0.0-1.2) H 06/13/18 17:39 3.6 g/dL (2.4-3.5) H 06/13/18 17:39 Cloudy (Clear) A 06/13/18 18:47 30 mg/dL (Neg-Trace) H 06/13/18 18:47 Positive (Negative) A 06/13/18 18:47 4.0 mg/dL (Normal) H 06/13/18 18:47 Ur Leukocyte Esterase Moderate (Negative) H 06/13/18 18:47 30-50 per hpf (0-3) H 06/13/18 18:47 Ur Squamous Epith Cells Many per lpf (None-Few) H 06/13/18 18:47 Many per hpf (None-Few) H 06/13/18 18:47 Hyaline Casts Moderate per lpf (None-Few) H 06/13/18 18:47 Ur Culture Indicated? YES (NO) A 06/13/18 18:47 Ur Amphetamines Screen Positive ng/mL ([id number]=[id number]) H 06/13/18 18:47 Consult Discharge Plan - Plan Referrals: NONE,PCP [Primary Care Provider] - Prescriptions: Cephalexin [Keflex] 500 mg PO TID #15 capsule <Juan Hall - Last Filed: 06/14/18 16:37> Date of Encounter: 06/14/18 Assessment and Plan (1) Cephalgia Current Visit: Yes Status: Acute I have personally performed a [id number] assessment of the patient and have reviewed the PA/AIR VALUE TESTER note. My impressions are as follows: Patient's various subjective and somatic complaints seem disproportionate to the actual element of pathology identified through neuroimaging, lab work and neurologic examination. I find no evidence of a central nervous system infectious, inflammatory process. Certainly no evidence of central nervous system vasculitis here. The headache may be due to toxic causes perhaps associated with her infection, or perhaps migraine. Migraine is commonly have nonspecific white matter changes identifiable on MRI imaging. However at this point I see no evidence of a peripheral nervous system process either. From my perspective I see no reason for further neurologic testing. He may discharge her at your discretion. Qualifiers: Headache type: unspecified Headache chronicity pattern: acute headache Intractability: not intractable Qualified Code(s): R51 - Headache (2) Paresthesia of bilateral legs Current Visit: Yes Status: Acute (3) Generalized weakness Current Visit: Yes Status: Acute History of Present Illness HPI: Chart was reviewed, the patient was seen and examined along with the SALES CONTRACTOR. I agr ee with his assessment as documented above. Patient presents with multiple subjective somatic complaints with an inconsistent timeline. She is however awake and alert there is no alteration in her level of consciousness. Her body language does not suggest that she is in significant pain at all. I did review the CT angiogram which was normal, MRI scan of the brain does reveal a few scattered nonspecific white matter hyperintensities. I am not at all convinced that this fits the clinical picture of central nervous system vasculitis. Her pupils are dilated to about 7 mm. Tox screen was positive for methamphetamines. All Systems: The remainder of the systems were reviewed and are negative Review of Systems: Balance of the systems review is negative. Physical Examination - Vital Signs Vital Signs: Initial Vital Signs Temp Pulse Resp BP Pulse Ox 99.4 F 88 16 161/104 100 06/13/18 17:09 06/13/18 17:09 06/13/18 17:06/13/18 17:06/13/18 17:09 - Exam Exam: I have personally performed a [id number]-[id number] assessment of the patient and have reviewed the PA/AIR VALUE TESTER note. My impressions are as follows: I agree with the neurologic examination as documented above by the SALES CONTRACTOR. Results - Laboratory Findings CBC and BMP: 06/14/18 04:35 06/14/18 04:35 Abnormal lab findings: Abnormal lab results RBC 5.22 M/mcL (3.82-4.97) H 06/13/18 17:39 MCV 79.3 fL (83.0-100.0) L 06/14/18 04:35 MCH 25.8 pg (28.0-33.3) L 06/14/18 04:35 RDW 15.6 % (11.5-14.5) H 06/14/18 04:35 ESR 26 mm/hr (0-15) H 06/14/18 04:47 PT 13.5 Seconds (9.4-12.1) H 06/13/18 17:39 Potassium 3.0 mEq/L (3.5-5.1) L 06/14/18 04:35 Chloride 109 mEq/L (98-107) H 06/14/18 04:35 Carbon Dioxide 20 mEq/L (23-29) L 06/14/18 04:35 Glucose 116 mg/dL (70-105) H 06/14/18 04:35 Iron 35 mcg/dL (50-170) L 06/14/18 04:35 % Saturation 12 % (15-50) L 06/14/18 04:35 2.0 mg/dL (0.3-1.0) H 06/14/18 04:35 0.4 mg/dL (0.0-0.2) H 06/13/18 17:39 1.5 mg/dL (0.0-1.2) H 06/13/18 17:39 49 mg/L (Less than 10) H 06/14/18 04:35 3.6 g/dL (2.4-3.5) H 06/13/18 17:39 Cloudy (Clear) A 06/13/18 18:47 30 mg/dL (Neg-Trace) H 06/13/18 18:47 Positive (Negative) A 06/13/18 18:47 4.0 mg/dL (Normal) H 06/13/18 18:47 Ur Leukocyte Esterase Moderate (Negative) H 06/13/18 18:47 30-50 per hpf (0-3) H 06/13/18 18:47 Ur Squamous Epith Cells Many per lpf (None-Few) H 06/13/18 18:47 Many per hpf (None-Few) H 06/13/18 18:47 Hyaline Casts Moderate per lpf (None-Few) H 06/13/18 18:47 Ur Culture Indicated? YES (NO) A 06/13/18 18:47 Ur Amphetamines Screen Positive ng/mL ([id number]) H 06/13/18 18:47
--- NOTE | 2018-06-14 15:28 | Electrocardiograph Report ---
[place] [address] Test Date: 2018-06-13 Pat Name: Juliana Slidell Department: EXAM30 Room: 3B47 Gender: F Visiting Housekeeper: : 1985 Requested By: Gómez Abbasi Order Number: [id number] Reading MD: Fausto Ott Measurements Intervals Leslie Rate: 88 P: 141 CT: 128 QRS: 162 QRSD: 116 T: 152 QT: 394 QTc: 477 Interpretive Statements Right and left arm electrode reversal, interpretation assumes no reversal Sinus rhythm RBBB Electronically Signed On 06-14-2018 15:26:48 EDT by Fausto Ott
--- NOTE | 2018-06-14 16:29 | Discharge Summary ---
- NOTES TO OUTPATIENT PROVIDER Notes to Outpatient Provider: f/u with PCP one week Orders not resulted at time of discharge: Pending orders 06/13/18 17:39 Culture,Blood [BC] Stat 06/13/18 18:47 Culture,Urine [RM] Stat Date of Encounter: 06/15/18 Time of Encounter: 16:27 - Discharge Diagnosis (1) Cephalgia Priority: Primary Status: Acute Qualifiers: Headache type: unspecified Headache chronicity pattern: acute headache Intractability: not intractable Qualified Code(s): R51 - Headache (2) UTI (urinary tract infection) Priority: Primary Status: Acute Qualifiers: Urinary tract infection type: site unspecified Hematuria presence: without hematuria Qualified Code(s): N39.0 - Urinary tract infection, site not specified (3) Paresthesia of bilateral legs Priority: Secondary Status: Acute (4) IV drug user Priority: Secondary Status: Chronic Hospital course: Ms. Castellano is a 33 year old female with no significant past medical history other than chronic substance abuse patient presented to the emergency room from local group home with complaint of occipital headache, b/l LE numbness and b/l hand numbness too. She says that she has had the headache for 1-2 weeks, is located in the back of her head and over the last 24 hours she has had difficulty with her eye movements. She has a history of IV heroin use but recently incarcerated she used methamphetamine. In the ER her urinalysis showed positive nitrites and moderate leukocyte esterase with many urine bacteria and 30-50 white blood cells. Patient's urine tox screen was positive for amphetamines. An angiogram of the head was performed that showed no acute intracranial abnormality. She was admitted in the hospital and placed on court recording monitor. Her symptoms seems to be so inconsistent, however pt stated her weakness and numbness in both legs better now. Pt seems to be malingering and overall gives a poor effort to any movement. She still has some headache. Her Brain MRI findings showing small scattered faint hyperintense signal foci within the cortical and subcortical white matter of both cerebral hemispheres involving the posterior left frontal lobe, right parietal lobe and right occipital lobe concerning for possible inflammatory vasculitis. However her symptoms does not correlate with vasculitis. Her inflammatory markers ESR and CRP are WNL. Pt was evaluated by Neurologist who did not recommend any further work up and cleared her to d/c back to group home today. - Time Spent with Patient Total time spent providing and/or coordinating discharge services: Time spent: D/C greater than 8 hours after Admission (I provided [id number] service to this pt more than 8hrs apart since pt got admitted in the hospital by my colleague.) - Discharge Medications Prescriptions: New Cephalexin [Keflex] 500 mg PO TID #15 capsule Continued Ibuprofen 800 mg PO TID PRN PRN Reason: Pain Home Medications: Ibuprofen 800 mg PO TID PRN 06/13/18 [History] Cephalexin [Keflex] 500 mg PO TID #15 capsule 06/14/18 [Rx] Allergies/Adverse Reactions: Allergy/AdvReac Type Severity Reaction Status Date / Time ethinyl estradiol Allergy Rash Verified 09/11/17 16:41 norelgestromin Allergy Rash Verified 09/11/17 16:41 Date of admission: 06/13/18 22:32 Primary care physician: PCP NONE Consults: 06/14/18 00:38 Consult to Plant Custodian [CONS] Routine Reason for SW Consult: currently incarcerated 06/14/18 04:09 Consult to Occupational Therapy [CONS] Routine Comment: Evaluate, develop and implement POC Reason for Consult: Patient states that she has difficulty moving legs and arms Does patient have active BEDREST order?: No Is patient medically & hemodynamically stable?: Yes Consult to Physical Therapy [CONS] Routine Comment: Evaluate, develop and implement POC Reason for Consult: Patient states that she has difficulty moving legs and arms Does patient have active BEDREST order?: No Is patient medically & hemodynamically stable?: Yes 06/14/18 14:16 Consult to Neurology [CONS] Routine Consulting Provider: [facility] Reason for Consult: Vasculitis changed on brain MRI Time Notified: 14:17 Call Completed: Yes - Constitutional Vitals: Temp Pulse Resp BP Pulse Ox 97.4 F L 67 16 155/97 99 06/14/18 15:15 06/14/18 15:15 06/14/18 15:15 06/14/18 15:15 06/14/18 15:15 General appearance: Present: cooperative, A&O X 3, pleasant, answers questions appropriately Exam: Gen: Alert, awake, Oriented to time,place and person HEENT: Neck supple, no spasm noticed Chest: Diminished breath sounds B/L, No wheezing, No crackles, No rales Heart: S1S2+ RRR No murmurs Abd: Soft, NT, BS +, No organomegaly Ext: No edema, pulses are palpable, No calf tenderness Neuro : paresthesia symptoms in both upper extremity some lower extremities.. Motor strength 5 out of 5 in all extremities. Reflexes ++ Skin: No rash. - Patient Status Disposition: Home, Self-Care Condition: Good Overall status at discharge: patient is back to baseline - Discharge Instructions Instructions: Cephalexin (By mouth) Follow Up With: NONE,PCP [Primary Care Provider] - - Diet and Activity Activity: increase activity as tolerated Diet: low salt diet
== END 2018-06-14 16:47 | disposition home or self-care (01) ==
LOC: 3BNU 16:59 → EMEROOARM 16:59 → 3BNU 23:00
PROVIDERS: ADMIT Pediatrics; ATTEND Pediatrics